=== PATIENT | female | born 1965 | race Caucasian/White ===

== ENCOUNTER → 2019-12-23 | Outpatient (CLI) | payer OTHER ==
--- NOTE | 2019-12-23 12:06 | NUR ---
DR. GARCIA CONFIRMED THAT HE GOT THE RESULT OF CT LEFT HAND/WRIST.
== END | disposition home or self-care (01) ==
LOC: CT 09:48
PROVIDERS: ATTEND Neuromusculoskeletal Medicine, Sports Medicine
PROC: BP2 Imaging, Non-Axial Upper Bones, Computerized Tomography (CT Scan) (ICD-10-PCS; principal; 2019-12-23)
DX: S52.502A Unspecified fracture of the lower end of left radius, initial encounter for closed fracture (principal); X58.XXXA Exposure to other specified factors, initial encounter; Y92.9 Unspecified place or not applicable

== ENCOUNTER 2019-12-26 06:43 | Day surgery (SDC) | payer OTHER ==
[2019-12-19 12:05] LABS: CALCIUM 8.4 mg/dL (8.5-10.1); CARBON DIOXIDE 28.7 mmol/L (21-32); CHLORIDE SERUM 104 mmol/L (98-107); CREATININE SERUM 0.6 mg/dL (0.6-1.0); GFR1 > 60 mL/min; GLUCOSE SERUM 95 mg/dL (74-106); POTASSIUM SERUM 3.2 mmol/L (3.5-5.1); SODIUM SERUM 141 mmol/L (136-145)
[2019-12-19 12:10] LABS: BASOPHIL % 0.6 % (0-2); PLATELET COUNT 277 x10^3mcL (130-400); RED CELL DISTRIBUTION WIDTH 14.5 % (11.5-14.5)
[2019-12-19 12:30] LABS: microscopic required? YES; urine erythrocyte 1+ (NEGATIVE)
[~2019-12-26] VITALS: Ht 149.9 cm; Wt 68.0 kg
[2019-12-26 07:11] VITALS: BP 167/93
[2019-12-26 07:40] LABS: CALCIUM 8.7 mg/dL (8.5-10.1); CARBON DIOXIDE 25.7 mmol/L (21-32); CHLORIDE SERUM 103 mmol/L (98-107); CREATININE SERUM 0.5 mg/dL (0.6-1.0); GFR1 > 60 mL/min; GLUCOSE SERUM 122 mg/dL (74-106); POTASSIUM SERUM 3.4 mmol/L (3.5-5.1); SODIUM SERUM 140 mmol/L (136-145)
[2019-12-26 14:13] VITALS: BP 144/86
== END 2019-12-26 13:40 | disposition home or self-care (01) ==
LOC: DS 06:43
PROVIDERS: ATTEND Neuromusculoskeletal Medicine, Sports Medicine
DX: S52.572A Other intraarticular fracture of lower end of left radius, initial encounter for closed fracture (principal); I10 Essential (primary) hypertension; E11.9 Type 2 diabetes mellitus without complications; Z98.891 History of uterine scar from previous surgery; Z79.899 Other long term (current) drug therapy; X58.XXXA Exposure to other specified factors, initial encounter; Y93.89 Activity, other specified; Y92.89 Other specified places as the place of occurrence of the external cause; Y99.8 Other external cause status; Z20.828 Contact with and (suspected) exposure to other viral communicable diseases
CPT/HCPCS: 82962; C1713; J0690; J1170; J2175; J3010; J3490; Q0092; U0003-CS